=== PATIENT | female | born 1995 | race Caucasian/White ===

== ENCOUNTER 2022-07-31 04:11 | Inpatient (IN) ==
[2022-07-31] MEDS ORDERED: miSOPROStoL 25 MCG TABLET PO PRN (05:19)
[2022-07-31] MEDS ORDERED: Famotidine 20 MG/2 ML VIAL IVP PRN (05:22)
[2022-07-31] MEDS ORDERED: Metoclopramide 10 MG/2 ML VIAL IVP PRN (05:22)
[2022-07-31] MEDS ORDERED: Naloxone 0.4 MG/ML INJ IVP PRN (05:22)
[2022-07-31] MEDS: Ringers Solution, Lactated 1,000 ML ONE ×2 (05:35→09:29)
[2022-07-31 06:23] LABS: Basophils # 0.1 K/mcL (0.0-0.2); Basophils % 0.5 %; Eosinophils # 0.1 K/mcL (0.0-0.6); Eosinophils % 0.8 %; Hematocrit 31.2 % (35.3-44.9); Hemoglobin 10.3 g/dL (11.5-15.4); Immature Granulocytes % 0.4 % (0-4); Lymphocytes # 2.4 K/mcL (0.6-4.6); Lymphocytes % 26.2 %; Mean Corpuscular Hemoglobin 27.2 pg (28.0-33.3); Mean Corpuscular Volume 82.3 fL (83.0-100.0); Mean Platelet Volume 12.3 fL (9.4-12.4); Monocytes # 0.6 K/mcL (0.0-1.3); Monocytes % 6.9 %; Platelet Count 251 K/mcL (140-400); Red Blood Count 3.79 M/mcL (3.82-4.97); Red Cell Distribution Width 14.7 % (11.5-14.5); Segmented Neutrophils % 65.2 %; White Blood Count 9.2 K/mcL (4.3-11.1)
[2022-07-31] MEDS ORDERED: EPHEDrine sulfate 50 MG/10 ML VIAL IVP PRN (06:38)
[2022-07-31] MEDS ORDERED: Epidural Premix (fent/bupiv) 110 ML EP SCH (06:45)
[2022-07-31] MEDS ORDERED: Oxytocin 30 UNIT/503 ML BAG IVC SCH ×2 (07:30→16:32)
[2022-07-31 09:01] LABS: Amphetamine Screen,Urine Negative ng/mL (Cutoff=1000); Barbiturate Screen,Urine Negative ng/mL (Cutoff=200); Benzodiazepines Screen,Urine Negative ng/mL (Cutoff=200); Cannabinoid Screen,Urine Negative ng/mL (Cutoff = 50); Cocaine Screen,Urine Negative ng/mL (Cutoff= 300); Opiate Screen,Urine Negative ng/mL (Cutoff=300); Phencyclidine Screen,Urine Negative ng/mL (Cutoff=25)
[2022-07-31] MEDS ORDERED: *HR* Norepinephrine 4 MG/4 ML VIAL IVC ONE (09:22)
[2022-07-31] MEDS ORDERED: Ringers Solution, Lactated 1,000 ML ONE (09:24)
[2022-07-31] MEDS ORDERED: Benzocaine/Menthol 56 GM AEROSOL SPRAY TP PRN (16:32)
[2022-07-31] MEDS ORDERED: Lanolin 7 G OINT...G. TP PRN (16:32)
[2022-07-31] MEDS ORDERED: Measles/Mumps/Rubella Vacc 0.5 ML VIAL SQ PRN (16:32)
[2022-07-31] MEDS ORDERED: Ondansetron ODT 4 MG TAB.RAPDIS SL PRN (16:32)
[2022-07-31] MEDS ORDERED: OXYTOCIN/RINGERS LACTATE 10 UNIT/166.6 ML BAG IVC ONE (16:32)
[2022-07-31] MEDS ORDERED: Benzocaine/Menthol 56 GM AEROSOL SPRAY TP ONE (16:33)
[2022-07-31] MEDS: Acetaminophen 325 MG TABLET PO SCH (19:57)
[2022-07-31] MEDS: Ibuprofen 600 MG TABLET PO SCH (19:57)
[2022-08-01] MEDS: Ibuprofen 600 MG TABLET PO SCH ×3 (03:36→11:21)
[2022-08-01] MEDS: Acetaminophen 325 MG TABLET PO SCH ×3 (03:37→11:22)
[2022-08-01 03:51] VITALS: O2SAT 98
[2022-08-01 07:05] VITALS: BP 122/82; PULSE 74; TEMP 97.9
[2022-08-01] MEDS ORDERED: Prenatal Vit/FA 1 EACH TABLET PO SCH (09:00)
== END 2022-08-01 14:09 | disposition home or self-care (01) | DRG 560 ==
LOC: 1NENULAB 04:11 → 1NENUOBS 15:48
PROVIDERS: ADMIT Obstetrics & Gynecology; ATTEND Obstetrics & Gynecology